=== PATIENT | female | born 1995 | race Caucasian/White ===

== ENCOUNTER 2021-05-29 03:46 | Emergency (ER) | payer OTHER ==
[2021-05-29 04:35] VITALS: BP 114/79; PULSE 107; TEMP 98.9; BMI 31.4
[2021-05-29] MEDS ORDERED: ACETAMINOPHEN 325 MG TABLET (FP) PO ONE (05:00)
[2021-05-29] MEDS ORDERED: METOCLOPRAMIDE HCL 10 MG TABLET (FP) PO ONE (05:00)
[2021-05-29] MEDS ORDERED: diphenhydrAMINE HCL 25 MG CAPSULE (FP) PO ONE (05:00)
[2021-05-29] MEDS ORDERED: ACETAMINOPHEN 1000 MG/100 ML VIAL (NON FORMULARY) IVPB ONE (05:03)
[2021-05-29] MEDS ORDERED: METOCLOPRAMIDE HCL INJECTION 10 MG/2 ML VIAL IVPUSH ONE (05:04)
[2021-05-29] MEDS ORDERED: METOCLOPRAMIDE HCL INJECTION 10 MG/2 ML VIAL ONE (05:08)
[2021-05-29] MEDS ORDERED: ACETAMINOPHEN INJECTION 100 ML IVPB ONE (05:08)
[2021-05-29 05:45] LABS: URINE APPEARANCE CLEAR; URINE BILIRUBIN NEGATIVE (NEGATIVE); URINE COLOR YELLOW; URINE GLUCOSE (UA) NEGATIVE (NEGATIVE); URINE KETONE 3+ (NEGATIVE); URINE LEUK ESTERASE NEGATIVE (NEGATIVE); URINE NITRITE NEGATIVE (NEGATIVE); URINE PROTEIN NEGATIVE (NEGATIVE); URINE UROBILINOGEN 0.2 mg/dL (0.2-1.0)
[2021-05-29 05:49] LABS: BASO % 0.9 % (0-2.0); EOS % 2.1 % (0-4.5); HEMATOCRIT 38.1 % (32.4-45.2); HEMOGLOBIN 12.7 GM/dL (10.7-15.3); LYMPH % 32.8 % (8-40); MCH 28.3 pg (25.7-33.7); MCHC 33.2 g/dl (32.0-36.0); MEAN PLT VOLUME 11.6 fl (7.5-11.1); MONO % 9.7 % (3.8-10.2); NEUT % 54.5 % (42.8-82.8); PLATELET COUNT 215 10^3/uL (134-434); RBC 4.48 M/mm3 (3.60-5.2); RDW 15.3 % (11.6-15.6); WHITE BLOOD COUNT 4.1 K/mm3 (4.0-10.0)
[2021-05-29 06:09] LABS: HCG,QUALITATIVE URINE Negative
[2021-05-29 06:21] LABS: CALCIUM 9.1 mg/dL (8.5-10.1)
[2021-05-29 06:22] LABS: ALBUMIN 4.4 g/dl (3.4-5.0); BLOOD UREA NITROGEN 7.6 mg/dL (7-18)
[2021-05-29 06:25] LABS: CREATININE 0.4 mg/dL (0.55-1.3)
[2021-05-29 06:26] LABS: BILIRUBIN,TOTAL 0.7 mg/dL (0.2-1)
[2021-05-29 06:28] LABS: TOT PROT 8.4 g/dl (6.4-8.2)
[2021-05-29] MEDS ORDERED: DEXAMETHASONE SOD PHOSPHATE 10 MG/1 ML VIAL IVPUSH ONE (07:10)
[2021-05-29] MEDS ORDERED: DEXAMETHASONE SOD PHOSPHATE 10 MG/1 ML VIAL ONE (07:20)
== END 2021-05-29 08:15 | disposition home or self-care (01) ==
LOC: JER 03:46
PROC: 3E033GC Introduction of Other Therapeutic Substance into Peripheral Vein, Percutaneous Approach (ICD-10-PCS; principal; 2021-05-29)
DX: G43.909 Migraine, unspecified, not intractable, without status migrainosus (principal); J32.0 Chronic maxillary sinusitis
CPT/HCPCS: 36415; 70450-TC; 80053; 81003; 84703; 85025; 99285-25; J0131; J1100